=== PATIENT | male | born 1955 | race Caucasian/White ===

== ENCOUNTER 2020-09-11 13:01 | Emergency (ER) | payer OTHER, SELFPAY ==
[2020-09-11 13:10] VITALS: BP 144/78; PULSE 56; RESP 16; TEMP 36.8; O2SAT 97
--- NOTE | 2020-09-11 13:20 | ED.DIZZY ---
HPI - Dizziness General Chief Complaint: Dizziness Stated Complaint: DIZZINESS Time Seen by Provider: 09/11/20 13:21 Source: patient Mode of arrival: ambulatory Limitations: no limitations History of Present Illness HPI Narrative: Merlin Pineda is a 65 yo male with a PMH of HTN, high cholesterol, who comes to express care with 2 days of dizziness. Patient states is only when he looks straight up to look straight down like to tie shoes that occurs he does not have a lot of difficulty with go side to side. Has not been ill he has not had this experience before. He is a non-smoker, he has no family history of cardiac issues strokes or sudden Related Data Allergies Allergy/AdvReac Type Severity Reaction Status Date / Time No Known Allergies Allergy Verified 09/11/20 13:09 Review of Systems Review of Systems: Narrative: CONSTITUTIONAL: Denies fever, chills, sweats. EYES: Denies visual changes, redness, discharge. ENT: Denies rhinorrhea, congestion, sore throat, otalgia. CARDIOVASCULAR: Denies chest pain, palpitations, edema. RESPIRATORY: Denies dyspnea, wheezing, cough GASTROINTESTINAL: Denies abdominal pain, nausea, vomiting, diarrhea. GENITOURINARY: Denies dysuria, hematuria, abnormal discharge SKIN: Denies rash or itching. NEUROLOGIC: Denies numbness, or focal weakness. Dizziness when looks up or looks down PSYCHIATRIC: Denies anxiety or depression. PMFSH Past Medical History Medical History (Updated 09/11/20 @ 13:46 by Irene Blas CNP) Benign familial tremor Family History Family History Father Diabetes mellitus Hypertension Mother Hypertension Sibling Diabetes mellitus Family history of malignant neoplasm Social History Social History Smoking status: Former smoker Alcohol intake: current Comments At time of signature, I agree with nursing past medical, surgical, social and family history. There is no relevant family history pertinent to the presenting complaint. Exam Narrative: Exam Narrative: GENERAL: This is a well-nourished, well-developed patient, in mild distress. HEAD: normocephalic, atraumatic. EYES: Sclera clear/white. Vision is grossly intact. EARS: External ears normal, auditory canals clear and without drainage, cerumen in left ear , hard to see TM omn L. Hearing grossly intact. NOSE: External nose normal without nasal discharge, nares without redness, no rhinorrhea. THROAT: Mucous membranes moist, posterior pharynx NECK: Neck supple, non-tender CARDIOVASCULAR:bradycardic rate and rhythm without murmurs, gallops, or rubs. possible extra beat RESPIRATORY: Clear to auscultation. Breath sounds equal bilaterally. No wheezes, rales, or rhonchi. GASTROINTESTINAL: Abdomen soft, non-tender, SKIN: warm, intact with no suspicious lesions or rash, good texture and turgor. NEURO: awake, alert, and oriented to person, place and time. There were no obvious focal neurologic abnormalities. Steady gait EXTREMITIES: Normal range of motion. BACK: Nontender without deformity Course Course Emergency Course: Patient came to express care for complaints of dizziness when he looks up or down EKG shows bradycardia heart rate is 49, no axis deviation Started on meclizine and Debrox-instructions given, copy of Sarah maneuver also provided Vital Signs Vital signs: Vital Signs Temperature 98.3 F 09/11/20 13:10 Pulse Rate 56 L 09/11/20 13:10 Respiratory Rate 16 09/11/20 13:10 Blood Pressure 144/78 H 09/11/20 13:10 Pulse Oximetry 97 09/11/20 13:10 Temperature 98.3 F 09/11/20 13:10 Pulse Rate 56 L 09/11/20 13:10 Respiratory Rate 16 09/11/20 13:10 Blood Pressure 144/78 H 09/11/20 13:10 Pulse Oximetry 97 09/11/20 13:10 MDM - Dizziness ECG Data EKG #1: ECG completion date: 09/11/20 ECG completion time: 13:41 Prior ECG tracings
--- NOTE | 2020-09-11 13:37 | ECG_ITS ---
Measurements Intervals [place] Rate: 49 P: 51 DE: 172 QRS: 30 QRSD: 81 T: 57 QT: 444 QTc: 403 Interpretive Statements SINUS BRADYCARDIA ABNORMAL ECG Electronically Signed On 09-12-2020 8:41:46 [facility]ER by Yoan Mg D.O.
== END 2020-09-11 13:55 | disposition home or self-care (01) ==
PROVIDERS: Emergency Provider Nurse Practitioner; PCP Family Medicine
DX: H81.11 Benign paroxysmal vertigo, right ear (principal); R00.1 Bradycardia, unspecified; Z87.891 Personal history of nicotine dependence; I10 Essential (primary) hypertension; E78.00 Pure hypercholesterolemia, unspecified
CPT/HCPCS: 93005; 99213; G0463

== ENCOUNTER → 2022-02-13 10:14 | Outpatient (CLI) | payer OTHER, MEDICARE, SELFPAY ==
--- NOTE | ~2022-02-13 | US_ITS ---
EXAMINATION: US aorta DATE: 02/13/2022 10:40 INDICATION: Abdominal aortic aneurysm screening. TECHNIQUE: Grayscale, color Doppler, and pulsed Doppler images of the aorta and common iliac arteries were obtained. COMPARISON: CT abdomen and pelvis 04/08/2012 FINDINGS: The aorta is normal in caliber. The common iliac arteries are obscured by bowel gas. There are cysts in the liver. IMPRESSION: 1. No abdominal aortic aneurysm. Reviewed, dictated and finalized at location A.
== END ==
PROVIDERS: PCP Family Medicine; Visit Provider Family Medicine
DX: Z87.891 Personal history of nicotine dependence (principal); Z82.49 Family history of ischemic heart disease and other diseases of the circulatory system
CPT/HCPCS: 76775

== ENCOUNTER 2023-09-16 08:15 | Outpatient (CLI) | payer OTHER, MEDICARE, SELFPAY ==
--- NOTE | 2023-09-20 20:00 | WPDHOMESLEEP ---
Sleep Study - Home Unattended Date of Study: 09/16/23 Ordering Provider: Jian Dye MD Interpreting Provider: Jeri Ham, DO Home Sleep Study Type: Watch PAT Height: 1.8 m Weight: 92.986 kg Body Mass Index: 28.5 Neck Circumference (inches): 16.5 [place]: 10 Reason for Sleep Study Snoring, unrefreshing sleep Sleep History The patient is a 68-year-old male with benign familial tremor, hyperlipidemia, hypertension GERD and history of tobacco use that had a sleep study ordered by his primary care physician for evaluation of sleep apnea. The patient denies awakening from sleep short of breath. He occasionally awakens at night with heartburn, belching or cough. He constantly snores loudly enough that others complain. He occasionally has trouble sleeping when he has a cold. He rarely wakes up gasping for air throughout the night. He frequently has breathing problems at night observed by himself or others. He occasionally sweats excessively at night. He denies having heart palpitations or irregular heartbeats during the night. He occasionally falls asleep during the day but never while driving. He denies sleep paralysis, cataplexy and hypnagogic / hypnopompic hallucinations. He rarely has trouble at school or work due to sleepiness. He occasionally has nightmares and frequently remembers his dreams. He occasionally has thoughts racing through his mind. He rarely feels sad, depressed or anxious. He denies having muscular tension. He rarely notices parts of his body jerk. He denies kicking during the night. He denies having crawling and aching feelings in his legs and denies having leg pain during the night. He denies grinding his teeth during sleep and denies awakening with morning jaw pain. He is occasionally bothered by pain during the day but rarely awakened by pain during the night. He occasionally wakes up feeling stiff in the morning. He occasionally wakes up with sore or achy muscles. He occasionally wakes up with pain in the neck, spine and other joints. He goes to bed at 1:00 a.m. on both weekdays and weekends. It takes him 15 minutes to fall asleep. He wakes up 2-3 times throughout the night for unknown reasons and is able to fall back asleep within 5 minutes. He wakes up at 6:30 a.m. on weekdays and 8:00 a.m. on the weekends. He typically gets 6 hours of sleep per night. He does not stay in the bed long after waking up in the morning. He currently lives with his . He denies consuming any caffeinated beverages within 2 hours of bedtime. He denies engaging in physical exercise before bedtime. He will watch television before falling asleep. He will take naps in afternoon or the evening but they are not refreshing. He consumes 2 caffeinated beverages per day. He consumes 6 alcoholic beverages per week. He quit smoking cigarettes 15 years ago. He denies recreational drug use. [facility] Past Medical History Medical History (Updated 09/20/23 @ 20:17 by Jeri Ham DO) Benign familial tremor Family History Family History Father Diabetes mellitus Hypertension Cancer Mother Hypertension Sibling Diabetes mellitus Family history of malignant neoplasm Son Multiple sclerosis Social History Social History Smoking status: Never smoker Alcohol intake: current Lack of Transportation: No Lack of Food: Never True Current Housing: I Have Housing Concerned About Future Housing: No Difficulty Paying Gas/Electric Bills: No Difficulty Paying for Meds: No Currently Unemployed: No Education: High School Diploma/GED Difficulty w/ Childcare or Family Care: No Medications Home Medications Medication Instructions Recorded Confirmed Type pravastatin 40 mg tablet See Rx Instructions .Route 07/08/22 08/19/23 Rx .COMPLEX #90 tabs propranolol 80
[2023-09-20 20:02] VITALS: BMI 28.5
== END 2023-09-17 10:25 | disposition home or self-care (01) ==
LOC: ANHCSM 08:17
PROVIDERS: PCP Family Medicine; Visit Provider Family Medicine
DX: G47.39 Other sleep apnea (principal)
CPT/HCPCS: 95800

== ENCOUNTER 2023-10-04 08:24 | Outpatient (CLI) | payer OTHER, MEDICARE, SELFPAY ==
[2023-10-21 18:02] VITALS: BMI 29.7
--- NOTE | 2023-10-21 18:02 | WPDSLEEPSTUD ---
Sleep Study Date of Study: 10/04/23 Ordering Provider: Jian Dye MD Interpreting Physician: Frances Doshi MD Sleep Study Type: CPAP Titration Height: 1.8 m Weight: 96.615 kg Body Mass Index: 29.7 Neck Circumference (inches): 16.5 [place]: 10 Reason for Sleep Study * 09/16/2023 WatchPat home sleep test with an AHI of 65 with desaturation down to 82%. The patient had 240 central apneas resulting in a central apnea index of 32.7. This is consistent with?severe sleep apnea. He presents for a CPAP titration. Due to the severity of the patient's sleep apnea as well as the elevated central apnea index, the patient is not a candidate for AutoPAP.? Sleep History Merlin Pineda is a 68-year-old male with benign familial tremor, hyperlipidemia, hypertensio,n GERD and history of tobacco use. He does not awaken at night with shortness of breath.? He occasionally awakens at night with heartburn, belching or coughing.? He constantly snores loudly enough that others complain.? He occasionally has trouble sleeping when he has a cold.? He rarely wakes up gasping for air during the night.? He frequently has breathing problems at night. He occasionally sweats excessively at night.? He denies having heart palpitations or irregular heartbeats during the night.? He occasionally falls asleep during the day but never while driving.? He denies loss of muscle tone with strong emotion, muscle weakness on falling asleep or upon awakening, and denies vivid dreamlike scenes upon falling asleep or upon awakening. He rarely has trouble at work due to sleepiness.? He occasionally has nightmares and frequently remembers his dreams.? He occasionally has thoughts racing through his mind.? He rarely feels sad, depressed or anxious.? He denies having muscular tension.? He rarely notices parts of his body jerk.? He denies kicking during the night.? He denies having crawling and aching feelings in his legs and denies having leg pain during the night.? He denies grinding his teeth during sleep and denies awakening with morning jaw pain.? He is occasionally bothered by pain during the day but rarely awakened by pain during the night.? He occasionally wakes up feeling stiff in the morning.? He occasionally wakes up with sore or achy muscles.? He occasionally wakes up with pain in the neck, spine and other joints.? Normal bedtime is 1:00 a.m., falling asleep within 15 minutes, waking 2-3 times throughout the night for unknown reasons. He returns to sleep within 5 minutes.? He wakes up at 6:30 a.m. on weekdays and 8:00 a.m. on the weekends.? He typically gets 6 hours of sleep per night.? He takes naps in afternoon or the evening, However a short nap lasting 10-15 minutes is not refreshing.? Habits: Tobacco: former smoker, quit 15 years ago Caffeine: 2 caffeinated beverages per day. ?Alcohol: 6 alcoholic beverages per week.? Recreational substance: none [facility] Past Medical History Medical History (Updated 10/21/23 @ 18:08 by Frances Doshi MD) Benign familial tremor Essential hypertension Gastro-esophageal reflux Mixed hyperlipidemia Mixed sleep apnea Family History Family History Father Diabetes mellitus Hypertension Cancer Mother Hypertension Sibling Diabetes mellitus Family history of malignant neoplasm Son Multiple sclerosis Social History Social History (Updated 10/21/23 @ 18:09 by Frances Doshi MD) Smoking status: Former smoker Alcohol intake: current Lack of Transportation: No Lack of Food: Never True Current Housing: I Have Housing Concerned About Future Housing: No Difficulty Paying Gas/Electric Bills: No Difficulty Paying for Meds: No Currently Unemployed: No Education: High School Diploma/GED Difficulty w/ Childcare or Family Care: No Medications Home Medications Medication Instructions Recorded Confirmed Type pravastatin 40 mg tablet See Rx In
== END 2023-10-05 06:34 | disposition home or self-care (01) ==
LOC: ANHCSM 08:26
PROVIDERS: PCP Family Medicine; Visit Provider Family Medicine
DX: R06.83 Snoring (principal); G47.39 Other sleep apnea; I70.0 Atherosclerosis of aorta; I10 Essential (primary) hypertension
CPT/HCPCS: 95811

== ENCOUNTER 2023-10-21 12:52 | Outpatient (CLI) | payer OTHER, SELFPAY ==
--- NOTE | 2023-10-21 13:03 | ECHO_ITS ---
Patient Info Name: Merlin Pineda Age: 68 years : 1955 Gender: Male Ht: 71 in Wt: 209 lbs BSA: 2.20 m2 HR: 58 bpm BP: 170 / 70 mmHg Technical Quality: Fair Exam Date: 10/21/2023 1:10 PM Exam Location: Echo Lab Patient Status: Outpatient Admit Date: 10/21/2023 Staff Ordering Physician: Jian Dye MD Attending Provider: Jian Dye MD Referring Physician: Marnie SHEPPARD; Exam Type: CA echo doppler color flow Study Info Indications I10 - Essential (primary) hypertension I70.0 - Atherosclerosis of aorta Complete two-dimensional, color flow and Doppler transthoracic echocardiogram is performed. Summary 1. Complete two-dimensional, color flow and Doppler transthoracic echocardiogram is performed. 2. Left ventricular chamber dimension is normal. 3. Left ventricular systolic function is normal, estimated at 60-65%. 4. The left ventricular diastolic function is grade I diastolic dysfunction. 5. E/e' 6 is not elevated. 6. Left atrial chamber dimension is mildly enlarged. 7. There is trace mitral valve regurgitation. 8. There is trace tricuspid valve regurgitation. Left Ventricle E/e' 6 is not elevated. Left ventricular chamber dimension is normal. Left ventricular systolic function is normal, estimated at 60-65%. The left ventricular diastolic function is grade I diastolic dysfunction. Right Ventricle Right ventricular systolic function is normal and with normal TAPSE 2.5 cm. Right ventricular chamber dimension is normal. Left Atria Left atrial chamber dimension is mildly enlarged. Right Atria Right atrial chamber dimension is normal. Aortic Valve The aortic valve is trileaflet. There is no aortic valve stenosis. There is no aortic valve regurgitation. Pulmonic Valve There is no pulmonic regurgitation. Mitral Valve There is no mitral valve stenosis. There is trace mitral valve regurgitation. Tricuspid Valve RVSP is not calculated due to an inadequate TR jet. There is trace tricuspid valve regurgitation. Pericardium/Pleural There is no pericardial effusion. Inferior Vena Cava Normal inferior vena cava with >50% collapse upon inspiration consistent with normal right atrial pressure, 5 mmHg. Aorta The aortic root size at the sinus of Valsalva is normal. Left Ventricular Outflow Tract Name Value Normal LVOT 2D LVOT Diameter 2.0 cm LVOT Doppler LVOT Peak Gradient 3 mmHg LVOT Mean Gradient 2 mmHg LVOT VTI 23 cm LVOT VTI/AV VTI Ratio 0.9 LVOT Stroke Volume 75 ml LVOT CO 3.8 l/min LVOT CI 1.7 l/min/m2 Pulmonic Valve Name Value Normal PV Doppler PV Peak Gradient 4 mmHg Mitral Valve Name
== END 2023-10-21 12:53 | disposition home or self-care (01) ==
LOC: ANHCARD 12:54
PROVIDERS: PCP Family Medicine; Visit Provider Family Medicine
DX: I70.0 Atherosclerosis of aorta (principal); I10 Essential (primary) hypertension; G47.39 Other sleep apnea
CPT/HCPCS: 93306